=== PATIENT | female | born 1990 | race Caucasian/White ===

== ENCOUNTER 2022-06-22 09:58 | Inpatient (IN) | payer OTHER ==
[2022-06-22 10:09] VITALS: BMI 17.6
[2022-06-22] MEDS ORDERED: SODIUM CHLORIDE 1,000 ML IV STA (10:56)
[2022-06-22] MEDS ORDERED: ONDANSETRON 4 MG/2 ML VIAL IVPUSH ONE ×2 (10:56→13:43)
[2022-06-22] MEDS ORDERED: morphine CARPU-JECT 4 MG/1 ML DISP.SYRIN IVPUSH ONE ×2 (10:56→13:39)
[2022-06-22] MEDS ORDERED: ONDANSETRON 4 MG/2 ML VIAL ONE ×2 (11:27→13:44)
[2022-06-22] MEDS ORDERED: morphine SULFATE 4 MG/ML VIAL ONE (11:27)
[2022-06-22 11:48] LABS: BASO % 0.2 % (0-2.0); EOS % 0.3 % (0-4.5); HEMATOCRIT 40.8 % (32.4-45.2); HEMOGLOBIN 13.6 GM/dL (10.7-15.3); LYMPH % 11.1 % (8-40); MCH 29.5 pg (25.7-33.7); MCHC 33.2 g/dl (32.0-36.0); MEAN CELL VOLUME 88.8 fl (80-96); MEAN PLT VOLUME 7.3 fl (7.5-11.1); MONO % 15.7 % (3.8-10.2); NEUT % 72.7 % (42.8-82.8); PLATELET COUNT 367 10^3/uL (134-434); RBC 4.59 M/mm3 (3.60-5.2); RDW 13.8 % (11.6-15.6); WHITE BLOOD COUNT 11.2 K/mm3 (4.0-10.0)
[2022-06-22 12:09] LABS: CALCIUM 8.9 mg/dL (8.5-10.1)
[2022-06-22 12:10] LABS: ALBUMIN 3.2 g/dl (3.4-5.0); BLOOD UREA NITROGEN 8.3 mg/dL (7-18)
[2022-06-22 12:13] LABS: CREATININE 0.7 mg/dL (0.55-1.3)
[2022-06-22 12:14] LABS: BILIRUBIN,TOTAL 1.2 mg/dL (0.2-1)
[2022-06-22 12:15] LABS: TOT PROT 7.7 g/dl (6.4-8.2)
[2022-06-22 13:07] LABS: EPI CELLS 17 /uL (0-25.1); HYALINE CASTS 2 /uL (0-3.1); PH,URINE 5.5 (5.0-8.0); URINE APPEARANCE CLEAR; URINE BACTERIA 117 /uL (0-1359); URINE BILIRUBIN NEGATIVE (NEGATIVE); URINE COLOR DK YELLOW; URINE GLUCOSE (UA) NEGATIVE (NEGATIVE); URINE KETONE 4+ (NEGATIVE); URINE LEUK ESTERASE NEGATIVE (NEGATIVE); URINE NITRITE NEGATIVE (NEGATIVE); URINE PROTEIN 1+ (NEGATIVE); URINE RBC 20 /uL (0-23.9); URINE WBC 5 /uL (0-25.8)
[2022-06-22] MEDS ORDERED: PIPERACILLIN/TAZOB 4.5 GM 4.5 GM in DEXTROSE 5%-WATER 100 ML IVPB ONE (16:18)
[2022-06-22] MEDS ORDERED: SODIUM CHLORIDE 1,000 ML IV SCH (16:30)
[2022-06-22] MEDS ORDERED: PIPERACILLIN/TAZOB 4.5 GM 4.5 GM/100 ML BAG IVPB ONE (17:51)
[2022-06-23] MEDS ORDERED: ACETAMINOPHEN 1000 MG/100 ML BAG IVPB PRN ×2 (02:46→05:34)
[2022-06-23] MEDS ORDERED: SODIUM CHLORIDE 1,000 ML IV SCH (03:00)
[2022-06-23 04:18] LABS: ERYTHROCYTE SEDIMENTATION RATE 78 mm/hr (0-20)
[2022-06-23] MEDS ORDERED: PIPERACILLIN/TAZOB 3.375 GM 3.375 GM in DEXTROSE 5%-WATER - 50 ML IVPB ONE ×2 (08:15→16:00)
[2022-06-23 11:32] LABS: HEMATOCRIT 35.3 % (32.4-45.2); HEMOGLOBIN 11.9 GM/dL (10.7-15.3); MCH 30.1 pg (25.7-33.7); MCHC 33.7 g/dl (32.0-36.0); MEAN CELL VOLUME 89.1 fl (80-96); MEAN PLT VOLUME 7.1 fl (7.5-11.1); PLATELET COUNT 332 10^3/uL (134-434); RBC 3.97 M/mm3 (3.60-5.2); WHITE BLOOD COUNT 4.6 K/mm3 (4.0-10.0)
[2022-06-23 11:54] LABS: ALBUMIN 2.7 g/dl (3.4-5.0); BLOOD UREA NITROGEN 9.2 mg/dL (7-18)
[2022-06-23 11:57] LABS: BILIRUBIN,TOTAL 1.2 mg/dL (0.2-1); CREATININE 0.5 mg/dL (0.55-1.3); PHOSPHOROUS 2.8 mg/dL (2.5-4.9)
[2022-06-23 11:59] LABS: TOT PROT 6.2 g/dl (6.4-8.2)
[2022-06-23] MEDS ORDERED: PEG 3350/NA SULF BICARB CL/KCL 4000 ML SOLN.RECON PO ONE (16:42)
[2022-06-23] MEDS ORDERED: BISACODYL 5 MG TABLET.DR (FP) PO ONE (22:00)
[2022-06-24 09:44] LABS: BASO % 0.5 % (0-2.0); EOS % 5.1 % (0-4.5); HEMATOCRIT 34.2 % (32.4-45.2); HEMOGLOBIN 11.6 GM/dL (10.7-15.3); LYMPH % 25.6 % (8-40); MCH 29.9 pg (25.7-33.7); MCHC 34.1 g/dl (32.0-36.0); MEAN CELL VOLUME 87.6 fl (80-96); MEAN PLT VOLUME 7.6 fl (7.5-11.1); MONO % 12.5 % (3.8-10.2); NEUT % 56.3 % (42.8-82.8); PLATELET COUNT 299 10^3/uL (134-434); RDW 13.9 % (11.6-15.6); WHITE BLOOD COUNT 4.7 K/mm3 (4.0-10.0)
[2022-06-24 09:51] LABS: INR 1.14 (0.83-1.09); PROTHROMBIN TIME (PATIENT) 13.1 SEC (9.7-13.0)
[2022-06-24 10:30] LABS: ALBUMIN 2.5 g/dl (3.4-5.0); BLOOD UREA NITROGEN 3.6 mg/dL (7-18); MAGNESIUM 1.9 mg/dL (1.8-2.4)
[2022-06-24 10:34] LABS: CREATININE 0.5 mg/dL (0.55-1.3); PHOSPHOROUS 2.4 mg/dL (2.5-4.9); TOT PROT 6.1 g/dl (6.4-8.2)
[2022-06-24] MEDS: SODIUM CHLORIDE 1,000 ML IV SCH ×2 (10:55→13:52)
[2022-06-24 12:24] LABS: BILIRUBIN,TOTAL 0.8 mg/dL (0.2-1)
[2022-06-25 08:11] LABS: CARCINOEMBRYONIC ANTIGEN 0.6 ng/mL (0.0-4.7)
[2022-06-25] MEDS ORDERED: POLYETHYLENE GLYCOL (HEALTHYLAX) 3350 17 GM PACKET PO SCH (11:45)
[2022-06-25 12:06] LABS: BASO % 0.4 % (0-2.0); EOS % 1.9 % (0-4.5); HEMOGLOBIN 13.2 GM/dL (10.7-15.3); LYMPH % 15.2 % (8-40); MCH 29.9 pg (25.7-33.7); MCHC 33.9 g/dl (32.0-36.0); MEAN CELL VOLUME 88.2 fl (80-96); MEAN PLT VOLUME 7.8 fl (7.5-11.1); MONO % 10.7 % (3.8-10.2); NEUT % 71.8 % (42.8-82.8); PLATELET COUNT 360 10^3/uL (134-434); RBC 4.43 M/mm3 (3.60-5.2); RDW 13.8 % (11.6-15.6); WHITE BLOOD COUNT 7.9 K/mm3 (4.0-10.0)
[2022-06-25 12:36] LABS: BLOOD UREA NITROGEN 5.3 mg/dL (7-18); CALCIUM 8.4 mg/dL (8.5-10.1)
[2022-06-25 12:37] LABS: ALBUMIN 2.8 g/dl (3.4-5.0)
[2022-06-25 12:39] LABS: CREATININE 0.5 mg/dL (0.55-1.3)
[2022-06-25 12:40] LABS: BILIRUBIN,TOTAL 0.6 mg/dL (0.2-1); TOT PROT 6.6 g/dl (6.4-8.2)
[2022-06-25] MEDS ORDERED: metroNIDAZOLE 250 MG TABLET PO SCH (15:30)
[2022-06-25] MEDS ORDERED: NEOMYCIN SO4 500 MG TABLET PO SCH ×2 (15:30→16:30)
[2022-06-25] MEDS ORDERED: PEG 3350/NA SULF BICARB CL/KCL 4000 ML SOLN.RECON PO ONE (16:00)
[2022-06-25] MEDS: metroNIDAZOLE 250 MG TABLET PO SCH ×2 (17:02→22:15)
[2022-06-25] MEDS: NEOMYCIN SO4 500 MG TABLET PO SCH ×2 (17:40→22:16)
[2022-06-25] MEDS ORDERED: DEXTROSE 5%-NORMAL SALINE 1,000 ML IV SCH (18:30)
[2022-06-25 22:06] LABS: GLIADIN ANTIBODY IGA 4 units (0-19); GLIADIN ANTIBODY IGG 1 units (0-19); TRANSGLUTAMINASE IGG < 2 U/mL (0-5)
[2022-06-25] MEDS: ONDANSETRON 4 MG/2 ML VIAL IVPUSH PRN (22:31)
[2022-06-26] MEDS: ONDANSETRON 4 MG/2 ML VIAL IVPUSH PRN (04:35)
[2022-06-26] MEDS ORDERED: BUPIVACAINE HCL/PF 0.25% (2.5MG/ML) 10 ML VIAL ONE (10:13)
[2022-06-26] MEDS ORDERED: LIDOCAINE HCL 1%, 10 MG/ML (20ML VIAL) ONE (10:13)
[2022-06-26] MEDS ORDERED: INDOCYANINE GREEN 25 MG/10 ML VIAL IVPUSH ONE (10:26)
[2022-06-26] MEDS ORDERED: DEXAMETHASONE SOD PHOSPHATE 4 MG/1 ML VIAL ONE ×2 (10:44→13:07)
[2022-06-26] MEDS ORDERED: KETOROLAC TROMETHAMINE 30 MG/1 ML VIAL ONE (10:44)
[2022-06-26] MEDS ORDERED: LIDOCAINE HCL 2% 100 MG/5 ML DISP.SYRIN ONE (10:44)
[2022-06-26] MEDS ORDERED: ROCURONIUM BROMIDE 50 MG/5 ML SYRINGE ONE (10:45)
[2022-06-26] MEDS ORDERED: SUCCINYLCHOLINE CHLORIDE 200 MG/10 ML SYRINGE ONE (10:45)
[2022-06-26] MEDS ORDERED: PROPOFOL 40 ML ONE (10:45)
[2022-06-26] MEDS ORDERED: MIDAZOLAM HCL 2 MG/2 ML SINGLE DOSE VIAL ONE (10:46)
[2022-06-26] MEDS ORDERED: cefOXitin SODIUM 2 GM VIAL (RESTRICTED TO ID) IVPB ONE ×2 (11:52→12:00)
[2022-06-26] MEDS ORDERED: BUPIVACAINE HCL/PF 0.25% (2.5MG/ML) 10 ML VIAL IJ ONE (12:11)
[2022-06-26] MEDS ORDERED: PROPOFOL 20 ML ONE (13:07)
[2022-06-26] MEDS ORDERED: LIDOCAINE HCL/PF 2% SDV 5ML VIAL ONE (13:07)
[2022-06-26] MEDS ORDERED: SODIUM CHLORIDE 0.9% P/F 10 ML VIAL IJ ONE (13:07)
[2022-06-26] MEDS ORDERED: GLYCOPYRROLATE 0.2 MG/1 ML VIAL ONE (13:07)
[2022-06-26] MEDS ORDERED: NEOSTIGMINE METHYLSULFATE 0.5 MG/ML - 10 ML MDV ONE (13:07)
[2022-06-26] MEDS ORDERED: ACETAMINOPHEN INJECTION 100 ML IVPB ONE (13:08)
[2022-06-26] MEDS ORDERED: DOCUSATE SODIUM 100 MG CAPSULE (FP) PO PRN (14:51)
[2022-06-26] MEDS ORDERED: KETOROLAC TROMETHAMINE 15 MG/ML VIAL IM PRN (14:51)
[2022-06-26] MEDS: DEXTROSE 5%-NORMAL SALINE 1,000 ML IV SCH ×3 (16:04→17:51)
[2022-06-26] MEDS: metroNIDAZOLE 250 MG TABLET PO SCH (16:06)
[2022-06-26] MEDS ORDERED: LACTATED RINGERS SOLUTION 1,000 ML IV SCH (17:15)
[2022-06-26] MEDS ORDERED: ACETAMINOPHEN 325 MG TABLET (FP) PO PRN (21:30)
[2022-06-27] MEDS: oxyCODONE HCL 5 MG TABLET PO PRN (01:14)
[2022-06-27] MEDS ORDERED: ACETAMINOPHEN 1000 MG/100 ML BAG IVPB ONE ×2 (02:24→06:00)
[2022-06-27] MEDS: DEXTROSE 5%-NORMAL SALINE 1,000 ML IV SCH ×2 (02:30→17:53)
[2022-06-27] MEDS ORDERED: HEPARIN NA (PORCINE) 5,000 UNITS/ML 1ML VIAL SQ SCH (10:00)
[2022-06-27] MEDS ORDERED: ENOXAPARIN NA (PORCINE) 30 MG/0.3 ML DISP.SYRIN SQ SCH ×2 (10:15→10:30)
[2022-06-27] MEDS: ENOXAPARIN NA (PORCINE) 40 MG/0.4 ML DISP.SYRIN SQ SCH (10:48)
[2022-06-27] MEDS: ACETAMINOPHEN 1000 MG/100 ML BAG IVPB PRN ×2 (11:13→18:38)
[2022-06-27 15:52] LABS: BASO % 0.1 % (0-2.0); EOS % 0.7 % (0-4.5); HEMATOCRIT 32.2 % (32.4-45.2); HEMOGLOBIN 11.2 GM/dL (10.7-15.3); LYMPH % 7.9 % (8-40); MCH 30.5 pg (25.7-33.7); MCHC 34.8 g/dl (32.0-36.0); MEAN CELL VOLUME 87.6 fl (80-96); MEAN PLT VOLUME 6.5 fl (7.5-11.1); MONO % 9.5 % (3.8-10.2); NEUT % 81.8 % (42.8-82.8); PLATELET COUNT 324 10^3/uL (134-434); RBC 3.67 M/mm3 (3.60-5.2); WHITE BLOOD COUNT 12.1 K/mm3 (4.0-10.0)
[2022-06-27 16:15] LABS: CALCIUM 7.8 mg/dL (8.5-10.1)
[2022-06-27 16:16] LABS: ALBUMIN 2.3 g/dl (3.4-5.0); BLOOD UREA NITROGEN 3.6 mg/dL (7-18); MAGNESIUM 1.6 mg/dL (1.8-2.4)
[2022-06-27 16:19] LABS: CREATININE 0.5 mg/dL (0.55-1.3)
[2022-06-27 16:21] LABS: BILIRUBIN,TOTAL 0.7 mg/dL (0.2-1); TOT PROT 5.6 g/dl (6.4-8.2)
[2022-06-27] MEDS: ONDANSETRON 4 MG/2 ML VIAL IVPUSH PRN (22:20)
[2022-06-28] MEDS: ACETAMINOPHEN 1000 MG/100 ML BAG IVPB PRN ×2 (00:07→08:33)
[2022-06-28] MEDS: DEXTROSE 5%-NORMAL SALINE 1,000 ML IV SCH ×2 (01:54→14:12)
[2022-06-28] MEDS: ENOXAPARIN NA (PORCINE) 40 MG/0.4 ML DISP.SYRIN SQ SCH (09:36)
[2022-06-28 09:57] LABS: BASO % 0.2 % (0-2.0); EOS % 1.3 % (0-4.5); HEMATOCRIT 31.2 % (32.4-45.2); HEMOGLOBIN 10.6 GM/dL (10.7-15.3); LYMPH % 3.6 % (8-40); MCH 29.7 pg (25.7-33.7); MCHC 34.1 g/dl (32.0-36.0); MEAN CELL VOLUME 87.1 fl (80-96); MEAN PLT VOLUME 7.1 fl (7.5-11.1); MONO % 6.6 % (3.8-10.2); NEUT % 88.3 % (42.8-82.8); PLATELET COUNT 344 10^3/uL (134-434); RBC 3.58 M/mm3 (3.60-5.2); RDW 13.5 % (11.6-15.6); WHITE BLOOD COUNT 12.2 K/mm3 (4.0-10.0)
[2022-06-28 10:16] LABS: ALBUMIN 2.2 g/dl (3.4-5.0); BLOOD UREA NITROGEN 5.6 mg/dL (7-18); CALCIUM 7.4 mg/dL (8.5-10.1); MAGNESIUM 1.8 mg/dL (1.8-2.4)
[2022-06-28 10:19] LABS: CREATININE 0.4 mg/dL (0.55-1.3)
[2022-06-28 10:21] LABS: BILIRUBIN,TOTAL 0.6 mg/dL (0.2-1); TOT PROT 5.4 g/dl (6.4-8.2)
[2022-06-28] MEDS: ONDANSETRON 4 MG/2 ML VIAL IVPUSH PRN (13:37)
[2022-06-28] MEDS: ACETAMINOPHEN 325 MG TABLET (FP) PO PRN ×3 (14:17→23:39)
[2022-06-29] MEDS: DEXTROSE 5%-NORMAL SALINE 1,000 ML IV SCH ×2 (06:31→15:19)
[2022-06-29] MEDS: oxyCODONE HCL 5 MG TABLET PO PRN ×3 (07:27→20:41)
[2022-06-29 08:50] LABS: BASO % 0.2 % (0-2.0); EOS % 2.5 % (0-4.5); HEMATOCRIT 30.4 % (32.4-45.2); HEMOGLOBIN 10.2 GM/dL (10.7-15.3); LYMPH % 5.8 % (8-40); MCH 29.7 pg (25.7-33.7); MCHC 33.6 g/dl (32.0-36.0); MEAN CELL VOLUME 88.5 fl (80-96); MEAN PLT VOLUME 6.9 fl (7.5-11.1); MONO % 7.3 % (3.8-10.2); NEUT % 84.2 % (42.8-82.8); PLATELET COUNT 354 10^3/uL (134-434); RBC 3.44 M/mm3 (3.60-5.2); RDW 13.7 % (11.6-15.6); WHITE BLOOD COUNT 10.8 K/mm3 (4.0-10.0)
[2022-06-29 09:07] LABS: CALCIUM 7.6 mg/dL (8.5-10.1)
[2022-06-29 09:08] LABS: BLOOD UREA NITROGEN 6.1 mg/dL (7-18)
[2022-06-29 09:09] LABS: MAGNESIUM 1.6 mg/dL (1.8-2.4)
[2022-06-29 09:10] LABS: CREATININE 0.4 mg/dL (0.55-1.3)
[2022-06-29 09:12] LABS: BILIRUBIN,TOTAL 0.6 mg/dL (0.2-1); TOT PROT 5.3 g/dl (6.4-8.2)
[2022-06-29] MEDS: ENOXAPARIN NA (PORCINE) 40 MG/0.4 ML DISP.SYRIN SQ SCH (09:30)
[2022-06-29] MEDS ORDERED: POTASSIUM CHLORIDE TABS 20 MEQ TABLET.ER (FP) PO ONE (09:57)
[2022-06-29] MEDS: MESALAMINE 800 MG TABLET.DR PO SCH ×2 (17:07→22:04)
[2022-06-29] MEDS: ACETAMINOPHEN 325 MG TABLET (FP) PO PRN ×2 (20:42→22:05)
[2022-06-29 22:45] VITALS: RESP 18
[2022-06-30] MEDS: MESALAMINE 800 MG TABLET.DR PO SCH ×2 (06:43→13:28)
[2022-06-30 07:20] VITALS: TEMP 98.3
[2022-06-30] MEDS: ENOXAPARIN NA (PORCINE) 40 MG/0.4 ML DISP.SYRIN SQ SCH (09:06)
[2022-06-30] MEDS: oxyCODONE HCL 5 MG TABLET PO PRN (09:06)
[2022-06-30 09:23] LABS: BASO % 0.4 % (0-2.0); EOS % 4.8 % (0-4.5); HEMATOCRIT 31.3 % (32.4-45.2); HEMOGLOBIN 10.9 GM/dL (10.7-15.3); LYMPH % 9.6 % (8-40); MCH 30.2 pg (25.7-33.7); MCHC 34.8 g/dl (32.0-36.0); MEAN CELL VOLUME 86.7 fl (80-96); MEAN PLT VOLUME 6.9 fl (7.5-11.1); MONO % 10.6 % (3.8-10.2); NEUT % 74.6 % (42.8-82.8); PLATELET COUNT 358 10^3/uL (134-434); RBC 3.61 M/mm3 (3.60-5.2); RDW 13.6 % (11.6-15.6); WHITE BLOOD COUNT 7.3 K/mm3 (4.0-10.0)
[2022-06-30 10:14] LABS: ALBUMIN 2.2 g/dl (3.4-5.0); BLOOD UREA NITROGEN 5.1 mg/dL (7-18); CALCIUM 7.9 mg/dL (8.5-10.1); MAGNESIUM 1.8 mg/dL (1.8-2.4)
[2022-06-30 10:17] LABS: CREATININE 0.4 mg/dL (0.55-1.3)
[2022-06-30 10:18] LABS: BILIRUBIN,TOTAL 0.7 mg/dL (0.2-1); TOT PROT 5.9 g/dl (6.4-8.2)
[2022-06-30 10:29] VITALS: BP 103/65; PULSE 88
[2022-06-30] MEDS: ACETAMINOPHEN 325 MG TABLET (FP) PO PRN (13:28)
== END 2022-06-30 17:41 | disposition home or self-care (01) | DRG 221 ==
LOC: EDBD 09:58 → JER 09:58 → JERBED 19:42 → J6S 06-23 07:40
PROVIDERS: ADMIT Hospitalist; ATTEND Nurse Practitioner Family
PROC: 0DBC8ZX Excision of Ileocecal Valve, Via Natural or Artificial Opening Endoscopic, Diagnostic (ICD-10-PCS; 2022-06-24)
PROC: 0DBC8ZX Excision of Ileocecal Valve, Via Natural or Artificial Opening Endoscopic, Diagnostic (ICD-10-PCS; principal; 2022-06-24 11:30)
PROC: 0DTH4ZZ Resection of Cecum, Percutaneous Endoscopic Approach (ICD-10-PCS; 2022-06-26)
DX: K50.90 Crohn's disease, unspecified, without complications (principal); K56.600 Partial intestinal obstruction, unspecified as to cause; R10.31 Right lower quadrant pain; R93.5 Abnormal findings on diagnostic imaging of other abdominal regions, including retroperitoneum; K63.89 Other specified diseases of intestine; K64.8 Other hemorrhoids; Z59.89 Other problems related to housing and economic circumstances
CPT/HCPCS: 36415; 71046-TC-FY; 74019-TC-FY; 74177-TC; 80048; 80053; 81003; 82272; 82378; 82542; 82607; 82728; 82746; 82784; 83497; 83516; 83540; 83550; 83690; 83735; 83993; 84100; 84703; 85025; 85027; 85610; 85651; 86140; 86255; 86301; 86480; 86671; 86704; 86708; 86803; 86850; 86900; 86901; 87040; 87045; 87046; 87086; 87186; 87209; 87340; 87517; 88305-TC; 88307-TC; 93005; 93010; 94010; 94760; 99285-25; C9803-CS; Q9967; U0003; U0005

== ENCOUNTER 2023-01-07 04:12 | Day surgery (SDC) | payer OTHER ==
[2023-01-07 10:18] VITALS: BMI 15.9
[2023-01-07 13:05] VITALS: TEMP 97.4
[2023-01-07 13:35] VITALS: BP 103/65; PULSE 82; RESP 14
== END 2023-01-07 14:50 | disposition home or self-care (01) ==
LOC: JASU-ENDO 04:12
PROVIDERS: ATTEND Internal Medicine Gastroenterology
PROC: 0DBE8ZX Excision of Large Intestine, Via Natural or Artificial Opening Endoscopic, Diagnostic (ICD-10-PCS; 2023-01-07)
PROC: 0DBP8ZX Excision of Rectum, Via Natural or Artificial Opening Endoscopic, Diagnostic (ICD-10-PCS; 2023-01-07)
PROC: 0DBB8ZX Excision of Ileum, Via Natural or Artificial Opening Endoscopic, Diagnostic (ICD-10-PCS; 2023-01-07)
PROC: 0DBM8ZX Excision of Descending Colon, Via Natural or Artificial Opening Endoscopic, Diagnostic (ICD-10-PCS; principal; 2023-01-07 11:45)
DX: Z12.11 Encounter for screening for malignant neoplasm of colon (principal); K52.9 Noninfective gastroenteritis and colitis, unspecified; K64.8 Other hemorrhoids; Z98.0 Intestinal bypass and anastomosis status
CPT/HCPCS: 81025; 88305-TC

== ENCOUNTER 2023-02-15 07:50 | Day surgery (SDC) | payer OTHER ==
[2023-02-15] MEDS ORDERED: diphenhydrAMINE HCL 25 MG CAPSULE (FP) PO ONE ×2 (09:00→10:45)
[2023-02-15] MEDS ORDERED: HYDROCORTISONE SOD SUCCINATE 100 MG/2 ML VIAL IVPB ONE (09:00)
[2023-02-15] MEDS ORDERED: ACETAMINOPHEN 500 MG TABLET (FP) PO ONE (09:00)
[2023-02-15 09:08] LABS: CHLORIDE 110 mmol/L (98-107); POTASSIUM 4.5 mmol/L (3.5-5.1); SODIUM 139 mmol/L (136-145)
[2023-02-15 09:10] LABS: ALBUMIN 3.5 g/dl (3.4-5.0); ANION GAP 4 MMOL/L (8-16); BLOOD UREA NITROGEN 13.5 mg/dL (7-18); CALCIUM 8.5 mg/dL (8.5-10.1); CO2 26 mmol/L (21-32); GLUCOSE,RANDOM 85 mg/dL (74-106)
[2023-02-15 09:14] LABS: CREATININE 0.7 mg/dL (0.55-1.3); SGPT/ALT 46 U/L (13-61)
[2023-02-15 09:15] LABS: BILIRUBIN,TOTAL 0.8 mg/dL (0.2-1); TOT PROT 7.6 g/dl (6.4-8.2)
[2023-02-15 09:16] LABS: ALK PHOS 72 U/L (45-117)
[2023-02-15 09:26] LABS: SGOT/AST 34 U/L (15-37)
[2023-02-15] MEDS ORDERED: SODIUM CHLORIDE IVPB ONE (09:30)
[2023-02-15] MEDS ORDERED: INFLIXIMAB ABDA IVPB ONE (09:30)
[2023-02-15 10:26] LABS: BASO % 0.4 % (0-2.0); EOS % 3.1 % (0-4.5); HEMATOCRIT 32.9 % (32.4-45.2); HEMOGLOBIN 10.9 GM/dL (10.7-15.3); LYMPH % 20.6 % (8-40); MCH 28.4 pg (25.7-33.7); MCHC 33.3 g/dl (32.0-36.0); MEAN CELL VOLUME 85.2 fl (80-96); MEAN PLT VOLUME 7.6 fl (7.5-11.1); MONO % 9.7 % (3.8-10.2); NEUT % 66.2 % (42.8-82.8); PLATELET COUNT 290 10^3/uL (134-434); RBC 3.86 M/mm3 (3.60-5.2); RDW 16.3 % (11.6-15.6)
[2023-02-15] MEDS ORDERED: SODIUM CHLORIDE 250 ML IV ONE (10:30)
[2023-02-15] MEDS ORDERED: ACETAMINOPHEN 500 MG TABLET (FP) ONE (10:46)
[2023-02-15] MEDS ORDERED: EPINEPHrine/PF 1 MG/1 ML (1:1,000) AMPULE ONE (11:20)
[2023-02-15] MEDS ORDERED: methylPREDNISolone NA SUCC 40 MG/1 ML VIAL ONE (11:21)
[2023-02-15] MEDS ORDERED: HYDROCORTISONE SOD SUCCINATE 100 MG/2 ML VIAL ONE (11:23)
[2023-02-15 14:45] VITALS: TEMP 98.2
[2023-02-15 15:10] VITALS: BP 102/71; PULSE 73; RESP 14
== END 2023-02-15 15:12 | disposition home or self-care (01) ==
LOC: JCHEMO 07:50 → FINFUSION 07:50 → FM/S 08:54 → FINFUSION 08:54 → JCHEMO 15:12
PROVIDERS: ATTEND Internal Medicine Gastroenterology
DX: K50.00 Crohn's disease of small intestine without complications (principal)
CPT/HCPCS: 36415; 80048; 80053; 85025; 86140; 96367; 96413; 96415; Q5104

== ENCOUNTER 2023-03-03 07:58 | Day surgery (SDC) | payer OTHER ==
[2023-03-03] MEDS ORDERED: HYDROCORTISONE SOD SUCCINATE 100 MG/2 ML VIAL IVPB ONE (09:00)
[2023-03-03] MEDS ORDERED: SODIUM CHLORIDE IVPB ONE ×3 (09:00→10:30)
[2023-03-03] MEDS ORDERED: HYDROCORTISONE SOD SUCCINATE IVPB ONE ×2 (09:00→10:00)
[2023-03-03 09:01] LABS: BASO % 0.2 % (0-2.0); EOS % 2.2 % (0-4.5); HEMATOCRIT 34.4 % (32.4-45.2); HEMOGLOBIN 11.5 GM/dL (10.7-15.3); MCH 27.9 pg (25.7-33.7); MCHC 33.5 g/dl (32.0-36.0); MEAN CELL VOLUME 83.4 fl (80-96); MONO % 11.9 % (3.8-10.2); NEUT % 60.7 % (42.8-82.8); PLATELET COUNT 268 10^3/uL (134-434); RBC 4.13 M/mm3 (3.60-5.2); WHITE BLOOD COUNT 5.3 K/mm3 (4.0-10.0)
[2023-03-03 09:18] LABS: CHLORIDE 108 mmol/L (98-107); SODIUM 139 mmol/L (136-145)
[2023-03-03 09:20] LABS: CALCIUM 8.9 mg/dL (8.5-10.1)
[2023-03-03 09:21] LABS: ALBUMIN 3.6 g/dl (3.4-5.0); ANION GAP 3 MMOL/L (8-16); BLOOD UREA NITROGEN 15.3 mg/dL (7-18); CO2 28 mmol/L (21-32); GLUCOSE,RANDOM 78 mg/dL (74-106)
[2023-03-03 09:24] LABS: CREATININE 0.7 mg/dL (0.55-1.3); SGOT/AST 24 U/L (15-37); SGPT/ALT 30 U/L (13-61)
[2023-03-03 09:25] LABS: TOT PROT 7.5 g/dl (6.4-8.2)
[2023-03-03 09:27] LABS: ALK PHOS 65 U/L (45-117)
[2023-03-03] MEDS ORDERED: diphenhydrAMINE HCL 25 MG CAPSULE (FP) PO ONE (10:00)
[2023-03-03] MEDS ORDERED: ACETAMINOPHEN 500 MG TABLET (FP) PO ONE (10:00)
[2023-03-03] MEDS ORDERED: SODIUM CHLORIDE 250 ML IV ONE (10:00)
[2023-03-03] MEDS ORDERED: INFLIXIMAB ABDA IVPB ONE (10:30)
[2023-03-03 11:39] VITALS: RESP 16; TEMP 98.1
[2023-03-03 12:16] VITALS: BP 104/60; PULSE 75
== END 2023-03-03 13:30 | disposition home or self-care (01) ==
LOC: JCHEMO 07:58
PROVIDERS: ATTEND Internal Medicine Gastroenterology
DX: K50.00 Crohn's disease of small intestine without complications (principal)
CPT/HCPCS: 36415; 80053; 85025; 86140; 96413; 96415; Q5104

== ENCOUNTER 2023-03-31 07:29 | Day surgery (SDC) | payer OTHER ==
[2023-03-31 09:01] LABS: BASO % 0.6 % (0-2.0); EOS % 3.9 % (0-4.5); HEMATOCRIT 33.2 % (32.4-45.2); HEMOGLOBIN 11.3 GM/dL (10.7-15.3); LYMPH % 28.6 % (8-40); MCH 29.5 pg (25.7-33.7); MCHC 34.1 g/dl (32.0-36.0); MEAN CELL VOLUME 86.5 fl (80-96); MEAN PLT VOLUME 7.5 fl (7.5-11.1); MONO % 11.7 % (3.8-10.2); NEUT % 55.2 % (42.8-82.8); PLATELET COUNT 293 10^3/uL (134-434); RBC 3.83 M/mm3 (3.60-5.2); RDW 17.7 % (11.6-15.6); WHITE BLOOD COUNT 5.3 K/mm3 (4.0-10.0)
[2023-03-31 09:24] LABS: CHLORIDE 108 mmol/L (98-107); SODIUM 141 mmol/L (136-145)
[2023-03-31 09:26] LABS: ANION GAP 6 MMOL/L (8-16); BLOOD UREA NITROGEN 13.3 mg/dL (7-18); CALCIUM 8.7 mg/dL (8.5-10.1); CO2 27 mmol/L (21-32)
[2023-03-31 09:27] LABS: ALBUMIN 3.5 g/dl (3.4-5.0); GLUCOSE,RANDOM 73 mg/dL (74-106)
[2023-03-31 09:29] LABS: CREATININE 0.8 mg/dL (0.55-1.3); SGPT/ALT 30 U/L (13-61)
[2023-03-31 09:30] LABS: SGOT/AST 22 U/L (15-37)
[2023-03-31 09:31] LABS: BILIRUBIN,TOTAL 0.9 mg/dL (0.2-1); TOT PROT 7.6 g/dl (6.4-8.2)
[2023-03-31 09:32] LABS: ALK PHOS 64 U/L (45-117)
[2023-03-31] MEDS ORDERED: ACETAMINOPHEN 500 MG TABLET (FP) PO ONE (10:00)
[2023-03-31] MEDS ORDERED: HYDROCORTISONE SOD SUCCINATE IVPB ONE (10:00)
[2023-03-31] MEDS ORDERED: SODIUM CHLORIDE IVPB ONE ×2 (10:00→10:30)
[2023-03-31] MEDS ORDERED: diphenhydrAMINE HCL 25 MG CAPSULE (FP) PO ONE (10:00)
[2023-03-31] MEDS ORDERED: INFLIXIMAB ABDA IVPB ONE (10:30)
[2023-03-31 16:17] VITALS: TEMP 98.2
[2023-03-31 17:49] VITALS: BP 98/55; PULSE 92; RESP 19
== END 2023-03-31 13:15 | disposition home or self-care (01) ==
LOC: JONCNONCHE 07:29
PROVIDERS: ATTEND Internal Medicine Gastroenterology
DX: K50.00 Crohn's disease of small intestine without complications (principal)
CPT/HCPCS: 36415; 80053; 84703; 85025; 86140; 96367; 96413; 96415; Q5104

== ENCOUNTER 2023-05-31 07:36 | Day surgery (SDC) | payer OTHER ==
[2023-05-31] MEDS ORDERED: SODIUM CHLORIDE IVPB ONE ×2 (08:30→09:00)
[2023-05-31] MEDS ORDERED: ACETAMINOPHEN 500 MG TABLET (FP) PO ONE (08:30)
[2023-05-31] MEDS ORDERED: diphenhydrAMINE HCL 25 MG CAPSULE (FP) PO ONE (08:30)
[2023-05-31] MEDS ORDERED: HYDROCORTISONE SOD SUCCINATE IVPB ONE (08:30)
[2023-05-31 08:32] LABS: BASO % 0.7 % (0-2.0); EOS % 4.1 % (0-4.5); HEMATOCRIT 37.7 % (32.4-45.2); HEMOGLOBIN 12.6 GM/dL (10.7-15.3); LYMPH % 23.4 % (8-40); MCH 29.9 pg (25.7-33.7); MCHC 33.3 g/dl (32.0-36.0); MEAN CELL VOLUME 89.6 fl (80-96); MEAN PLT VOLUME 8.2 fl (7.5-11.1); MONO % 8.8 % (3.8-10.2); PLATELET COUNT 260 10^3/uL (134-434); RBC 4.21 M/mm3 (3.60-5.2); RDW 15.7 % (11.6-15.6); WHITE BLOOD COUNT 6.1 K/mm3 (4.0-10.0)
[2023-05-31] MEDS ORDERED: INFLIXIMAB ABDA IVPB ONE (09:00)
[2023-05-31 09:14] LABS: CHLORIDE 108 mmol/L (98-107); POTASSIUM 3.6 mmol/L (3.5-5.1); SODIUM 143 mmol/L (136-145)
[2023-05-31 09:15] LABS: ALBUMIN 3.5 g/dl (3.4-5.0); ANION GAP 6 MMOL/L (8-16); BLOOD UREA NITROGEN 10.2 mg/dL (7-18); CO2 29 mmol/L (21-32); GLUCOSE,RANDOM 90 mg/dL (74-106)
[2023-05-31 09:19] LABS: CREATININE 0.8 mg/dL (0.55-1.3); SGOT/AST 21 U/L (15-37); SGPT/ALT 28 U/L (13-61)
[2023-05-31 09:21] LABS: BILIRUBIN,TOTAL 1.4 mg/dL (0.2-1); TOT PROT 7.4 g/dl (6.4-8.2)
[2023-05-31 09:22] LABS: ALK PHOS 70 U/L (45-117)
[2023-05-31] MEDS ORDERED: SODIUM CHLORIDE 250 ML IV ONE (09:30)
[2023-05-31 15:57] VITALS: BP 92/57; PULSE 80; RESP 20; TEMP 98.1
== END 2023-05-31 13:25 | disposition home or self-care (01) ==
LOC: JCHEMO 07:36 → J7W 07:43 → JCHEMO 13:25
PROVIDERS: ATTEND Internal Medicine Gastroenterology
PROC: 3E03305 Introduction of Other Antineoplastic into Peripheral Vein, Percutaneous Approach (ICD-10-PCS; principal; 2023-05-31)
PROC: 3E033GC Introduction of Other Therapeutic Substance into Peripheral Vein, Percutaneous Approach (ICD-10-PCS; 2023-05-31)
PROC: 3E0337Z Introduction of Electrolytic and Water Balance Substance into Peripheral Vein, Percutaneous Approach (ICD-10-PCS; 2023-05-31)
DX: K50.00 Crohn's disease of small intestine without complications (principal)
CPT/HCPCS: 36415; 80053; 84703; 85025; 86140; 96361; 96367; 96413; 96415; Q5104

== ENCOUNTER 2023-08-16 08:17 | Day surgery (SDC) | payer OTHER ==
[2023-08-16] MEDS ORDERED: SODIUM CHLORIDE 250 ML IV SCH (08:30)
[2023-08-16] MEDS ORDERED: ACETAMINOPHEN 500 MG TABLET (FP) PO ONE (10:00)
[2023-08-16] MEDS ORDERED: SODIUM CHLORIDE IVPB ONE ×2 (10:00→10:30)
[2023-08-16] MEDS ORDERED: HYDROCORTISONE SOD SUCCINATE IVPB ONE (10:00)
[2023-08-16] MEDS ORDERED: diphenhydrAMINE HCL 25 MG CAPSULE (FP) PO ONE (10:00)
[2023-08-16] MEDS ORDERED: INFLIXIMAB ABDA IVPB ONE (10:30)
[2023-08-16 13:56] VITALS: RESP 18
[2023-08-16 14:44] VITALS: BP 98/56; PULSE 95; TEMP 97.8
== END 2023-08-16 14:40 | disposition home or self-care (01) ==
LOC: JCHEMO 08:17 → J7W 08:18 → JCHEMO 14:40
PROVIDERS: ATTEND Internal Medicine Gastroenterology
DX: K50.00 Crohn's disease of small intestine without complications (principal)
CPT/HCPCS: 96367; 96413; 96415; Q5104

== ENCOUNTER 2023-10-18 10:31 | Day surgery (SDC) | payer OTHER ==
[~2023-10-18 10:31] MED LIST: ACETAMINOPHEN 500 MG TABLET (FP) PO ONE; HYDROCORTISONE SOD SUCCINATE IVPB ONE; INFLIXIMAB ABDA IVPB ONE; SODIUM CHLORIDE 250 ML IV SCH; SODIUM CHLORIDE IVPB ONE; diphenhydrAMINE HCL 25 MG CAPSULE (FP) PO ONE
[2023-10-18 11:46] LABS: BASO % 0.1 % (0-2.0); EOS % 1.4 % (0-4.5); HEMATOCRIT 34.3 % (32.4-45.2); HEMOGLOBIN 11.8 GM/dL (10.7-15.3); LYMPH % 10.8 % (8-40); MCH 34.6 pg (25.7-33.7); MCHC 34.4 g/dl (32.0-36.0); MEAN CELL VOLUME 100.7 fl (80-96); MEAN PLT VOLUME 7.7 fl (7.5-11.1); MONO % 7.5 % (3.8-10.2); NEUT % 80.2 % (42.8-82.8); PLATELET COUNT 202 10^3/uL (134-434); RBC 3.41 M/mm3 (3.60-5.2); RDW 14.4 % (11.6-15.6); WHITE BLOOD COUNT 9.7 K/mm3 (4.0-10.0)
[2023-10-18 12:08] LABS: POTASSIUM 3.9 mmol/L (3.5-5.1)
[2023-10-18 12:11] LABS: ALBUMIN 2.6 g/dl (3.4-5.0)
[2023-10-18 12:14] LABS: CREATININE 0.6 mg/dL (0.55-1.3)
[2023-10-18 12:16] LABS: BILIRUBIN,TOTAL 0.3 mg/dL (0.2-1); TOT PROT 6.4 g/dl (6.4-8.2)
[2023-10-18 17:19] VITALS: RESP 18; TEMP 97.9
[2023-10-18 17:22] VITALS: BP 91/50; PULSE 73
== END 2023-10-18 16:15 | disposition home or self-care (01) ==
LOC: JCHEMO 10:31 → J7W 10:33 → JCHEMO 16:15
PROVIDERS: ATTEND Internal Medicine Gastroenterology
DX: K50.00 Crohn's disease of small intestine without complications (principal)
CPT/HCPCS: 36415; 80053; 85025; 86140; 96367; 96413; 96415; Q5104

== ENCOUNTER 2024-02-29 18:05 | Inpatient (IN) | payer OTHER ==
[2024-02-29 18:45] VITALS: BMI 23.2
[2024-02-29] MEDS: ELECTROLYTE-148 SOLN 1,000 ML IV SCH (19:00)
[2024-02-29 19:30] LABS: BASO % 0.4 % (0-2.0); EOS % 0.7 % (0-4.5); HEMATOCRIT 37.9 % (32.4-45.2); HEMOGLOBIN 12.6 GM/dL (10.7-15.3); LYMPH % 11.4 % (8-40); MCH 32.9 pg (25.7-33.7); MCHC 33.2 g/dl (32.0-36.0); MEAN CELL VOLUME 99.1 fl (80-96); MEAN PLT VOLUME 8.9 fl (7.5-11.1); MONO % 7.6 % (3.8-10.2); NEUT % 79.9 % (42.8-82.8); PLATELET COUNT 164 10^3/uL (134-434); RBC 3.82 M/mm3 (3.60-5.2); WHITE BLOOD COUNT 11.3 K/mm3 (4.0-10.0)
[2024-02-29 19:36] LABS: INR 0.96 (0.83-1.09); PROTHROMBIN TIME (PATIENT) 11.1 SEC (9.7-13.0)
[2024-02-29] MEDS ORDERED: FENTANYL/BUPIVACAINE/NS/PF - PCEA - 50 ML DISP.SYRIN EP ONE (19:37)
[2024-02-29 19:39] LABS: ACTIVATED PTT 27.6 SECONDS (25.2-36.5)
[2024-02-29 19:51] LABS: CALCIUM 7.9 mg/dL (8.5-10.1)
[2024-02-29 19:52] LABS: BLOOD UREA NITROGEN 7.3 mg/dL (7-18)
[2024-02-29 19:55] LABS: CREATININE 0.6 mg/dL (0.55-1.3)
[2024-02-29] MEDS: FENTANYL/BUPIVACAINE/NS/PF - PCEA - 50 ML DISP.SYRIN EP SCH (19:55)
[2024-02-29] MEDS ORDERED: NALOXONE HCL 0.4 MG/ML VIAL IVPUSH PRN (22:09)
[2024-03-01] MEDS ORDERED: OXYTOCIN 20 UNITS in 0.9% NS 20 UNIT/1,000 ML INFUS.BAG IV ONE (00:24)
[2024-03-01] MEDS: OXYTOCIN 20 UNITS in 0.9% NS 20 UNIT/1,000 ML INFUS.BAG IV SCH (01:06)
[2024-03-01] MEDS ORDERED: BISACODYL 10 MG SUPP.RECT RC PRN (01:43)
[2024-03-01] MEDS ORDERED: METHYLERGONOVINE MALEATE 0.2 MG/1 ML AMP IM PRN (01:43)
[2024-03-01] MEDS ORDERED: BENZOCAINE 28 GM HEMORRHOIDAL OINTMENT TP PRN (01:43)
[2024-03-01 02:06] LABS: CORD HCO3 22.9 mmHg (20-29); CORD PCO2 64.4 mmHg (30-78); CORD pH 7.168 (7.14-7.44)
[2024-03-01 02:08] LABS: CORD BASE EXCESS -7.5 mmol/L (0-2); CORD HCO3 20.1 mmHg (20-29); CORD PCO2 47.7 mmHg (30-78); CORD pH 7.243 (7.14-7.44)
[2024-03-01] MEDS: ACETAMINOPHEN 325 MG TABLET (FP) PO PRN (02:12)
[2024-03-01] MEDS: FENTANYL/BUPIVACAINE/NS/PF - PCEA - 50 ML DISP.SYRIN EP SCH (02:50)
[2024-03-01] MEDS: WITCH HAZEL 50% (TUCKS) 40 PAD/JAR PAD TP PRN (04:06)
[2024-03-01] MEDS: BENZOCAINE 20% 57 GM BOTTLE TP PRN (04:06)
[2024-03-01] MEDS: IBUPROFEN 600 MG TABLET (FP) PO PRN (04:07)
[2024-03-01] MEDS: PRENATAL VITAMINS W/ FOLIC ACID TABLET (FP) PO SCH (09:12)
[2024-03-02 08:40] LABS: BASO % 0.7 % (0-2.0); EOS % 1.9 % (0-4.5); HEMATOCRIT 34.1 % (32.4-45.2); HEMOGLOBIN 11.5 GM/dL (10.7-15.3); LYMPH % 14.3 % (8-40); MCH 33.7 pg (25.7-33.7); MCHC 33.6 g/dl (32.0-36.0); MEAN CELL VOLUME 100.3 fl (80-96); MEAN PLT VOLUME 8.9 fl (7.5-11.1); MONO % 6.2 % (3.8-10.2); NEUT % 76.9 % (42.8-82.8); PLATELET COUNT 156 10^3/uL (134-434); RDW 14.5 % (11.6-15.6); WHITE BLOOD COUNT 9.4 K/mm3 (4.0-10.0)
[2024-03-02] MEDS ORDERED: SENNOSIDES/DOCUSATE COMBO (SENNA PLUS) TABLET (UD) PO PRN (22:00)
[2024-03-02 22:11] VITALS: RESP 18
[2024-03-03 09:25] VITALS: TEMP 97.9
[2024-03-03 09:27] VITALS: BP 121/71; PULSE 94
== END 2024-03-03 12:00 | disposition home or self-care (01) | DRG 560 ==
LOC: JDEL 18:05 → JLDR 18:25 → J3W 03-01 03:39
PROVIDERS: ADMIT Obstetrics & Gynecology Obstetrics; ATTEND Obstetrics & Gynecology Obstetrics
PROC: 10E0XZZ Delivery of Products of Conception, External Approach (ICD-10-PCS; principal; 2024-03-01)
DX: O69.81X0 Labor and delivery complicated by cord around neck, without compression, not applicable or unspecified (principal); Z3A.40 40 weeks gestation of pregnancy; Z37.0 Single live birth
CPT/HCPCS: 36415; 36600; 59025; 80048; 82803; 85025; 85610; 85730; 86780; 86850; 86900; 86901

== ENCOUNTER 2024-04-12 09:21 | Day surgery (SDC) | payer OTHER ==
[2024-04-12 10:40] LABS: BASO % 0.4 % (0-2.0); EOS % 3.7 % (0-4.5); HEMATOCRIT 39.8 % (32.4-45.2); HEMOGLOBIN 13.6 GM/dL (10.7-15.3); LYMPH % 23.7 % (8-40); MCHC 34.1 g/dl (32.0-36.0); MEAN CELL VOLUME 96.7 fl (80-96); MEAN PLT VOLUME 7.5 fl (7.5-11.1); MONO % 8.5 % (3.8-10.2); NEUT % 63.7 % (42.8-82.8); PLATELET COUNT 239 10^3/uL (134-434); RBC 4.12 M/mm3 (3.60-5.2); RDW 12.9 % (11.6-15.6); WHITE BLOOD COUNT 7.3 K/mm3 (4.0-10.0)
[2024-04-12 10:54] LABS: ALBUMIN 3.5 g/dl (3.4-5.0); BLOOD UREA NITROGEN 15.5 mg/dL (7-18)
[2024-04-12 10:57] LABS: BILIRUBIN,TOTAL 0.7 mg/dL (0.2-1); CREATININE 0.8 mg/dL (0.55-1.3)
[2024-04-12 10:59] LABS: TOT PROT 7.4 g/dl (6.4-8.2)
[2024-04-12] MEDS: diphenhydrAMINE HCL 25 MG CAPSULE (FP) PO ONE (11:20)
[2024-04-12] MEDS: ACETAMINOPHEN 500 MG TABLET (FP) PO ONE (11:20)
[2024-04-12] MEDS: HYDROCORTISONE SOD SUCCINATE IVPB ONE (11:21)
[2024-04-12] MEDS: SODIUM CHLORIDE 250 ML IV ONE (11:21)
[2024-04-12] MEDS: SODIUM CHLORIDE IVPB ONE ×2 (11:21→12:11)
[2024-04-12] MEDS: INFLIXIMAB ABDA IVPB ONE (12:11)
[2024-04-12 15:47] VITALS: RESP 16; TEMP 98.4
[2024-04-12 15:56] VITALS: BP 120/66; PULSE 69
== END 2024-04-12 15:00 | disposition home or self-care (01) ==
LOC: JINFUSION 09:21 → J7W 09:23 → JINFUSION 15:00
PROVIDERS: ATTEND Internal Medicine Gastroenterology
DX: K50.00 Crohn's disease of small intestine without complications (principal)
CPT/HCPCS: 36415; 80053; 85025; 86140; 96367; 96413; 96415; Q5104

== ENCOUNTER 2024-04-27 07:47 | Day surgery (SDC) | payer OTHER ==
[~2024-04-27 07:47] MED LIST changes: +SODIUM CHLORIDE 250 ML IV ONE; -SODIUM CHLORIDE 250 ML IV SCH
[2024-04-27 08:44] LABS: BASO % 0.3 % (0-2.0); EOS % 4.1 % (0-4.5); HEMATOCRIT 38.4 % (32.4-45.2); HEMOGLOBIN 13.2 GM/dL (10.7-15.3); MCH 33.3 pg (25.7-33.7); MCHC 34.4 g/dl (32.0-36.0); MEAN CELL VOLUME 96.6 fl (80-96); MEAN PLT VOLUME 7.1 fl (7.5-11.1); MONO % 7.5 % (3.8-10.2); NEUT % 62.1 % (42.8-82.8); PLATELET COUNT 237 10^3/uL (134-434); RBC 3.97 M/mm3 (3.60-5.2); RDW 13.6 % (11.6-15.6); WHITE BLOOD COUNT 6.3 K/mm3 (4.0-10.0)
[2024-04-27] MEDS: diphenhydrAMINE HCL 25 MG CAPSULE (FP) PO ONE (08:56)
[2024-04-27] MEDS: ACETAMINOPHEN 500 MG TABLET (FP) PO ONE (08:56)
[2024-04-27 09:01] LABS: CHLORIDE 107 mmol/L (98-107); POTASSIUM 4.1 mmol/L (3.5-5.1); SODIUM 140 mmol/L (136-145)
[2024-04-27 09:04] LABS: CALCIUM 8.7 mg/dL (8.5-10.1)
[2024-04-27 09:05] LABS: ALBUMIN 3.4 g/dl (3.4-5.0); ANION GAP 4 mmol/L (4-13); BLOOD UREA NITROGEN 8.9 mg/dL (7-18); CO2 29 mmol/L (21-32); GLUCOSE,RANDOM 82 mg/dL (74-106)
[2024-04-27 09:08] LABS: CREATININE 0.8 mg/dL (0.55-1.3); SGOT/AST 36 U/L (15-37); SGPT/ALT 60 U/L (13-61)
[2024-04-27 09:10] LABS: BILIRUBIN,TOTAL 1.2 mg/dL (0.2-1)
[2024-04-27 09:11] LABS: ALK PHOS 86 U/L (45-117)
[2024-04-27] MEDS: HYDROCORTISONE SOD SUCCINATE IVPB ONE (09:45)
[2024-04-27] MEDS: SODIUM CHLORIDE IVPB ONE ×2 (09:45→10:28)
[2024-04-27] MEDS: SODIUM CHLORIDE 250 ML IV ONE (09:49)
[2024-04-27] MEDS: INFLIXIMAB ABDA IVPB ONE (10:28)
[2024-04-27 11:03] VITALS: RESP 20
[2024-04-27 15:12] VITALS: BP 107/67; PULSE 81; TEMP 98
== END 2024-04-27 13:00 | disposition home or self-care (01) ==
LOC: JINFUSION 07:47 → J7W 07:49 → JINFUSION 13:00
PROVIDERS: ATTEND Internal Medicine Gastroenterology
DX: K50.00 Crohn's disease of small intestine without complications (principal)
CPT/HCPCS: 36415; 80053; 85025; 86140; 96367; 96413; 96415; Q5104

== ENCOUNTER 2024-05-24 07:07 | Day surgery (SDC) | payer OTHER ==
[2024-05-24 07:37] LABS: BASO % 0.6 % (0-2.0); EOS % 3.3 % (0-4.5); HEMATOCRIT 37.8 % (32.4-45.2); LYMPH % 29.2 % (8-40); MCH 33.6 pg (25.7-33.7); MCHC 34.4 g/dl (32.0-36.0); MEAN CELL VOLUME 97.7 fl (80-96); MEAN PLT VOLUME 7.3 fl (7.5-11.1); MONO % 9.4 % (3.8-10.2); NEUT % 57.5 % (42.8-82.8); PLATELET COUNT 262 10^3/uL (134-434); RBC 3.87 M/mm3 (3.60-5.2); RDW 13.3 % (11.6-15.6); WHITE BLOOD COUNT 6.5 K/mm3 (4.0-10.0)
[2024-05-24] MEDS: SODIUM CHLORIDE 250 ML IV ONE (07:42)
[2024-05-24 08:08] LABS: CHLORIDE 109 mmol/L (98-107); SODIUM 141 mmol/L (136-145)
[2024-05-24 08:10] LABS: ALBUMIN 3.5 g/dl (3.4-5.0); ANION GAP 4 mmol/L (4-13); CALCIUM 8.3 mg/dL (8.5-10.1); CO2 28 mmol/L (21-32)
[2024-05-24 08:12] LABS: BLOOD UREA NITROGEN 13.5 mg/dL (7-18); GLUCOSE,RANDOM 84 mg/dL (74-106)
[2024-05-24 08:13] LABS: CREATININE 0.7 mg/dL (0.55-1.3)
[2024-05-24 08:14] LABS: SGOT/AST 30 U/L (15-37); SGPT/ALT 47 U/L (13-61)
[2024-05-24 08:15] LABS: BILIRUBIN,TOTAL 1.3 mg/dL (0.2-1); TOT PROT 7.2 g/dl (6.4-8.2)
[2024-05-24 08:16] VITALS: RESP 18
[2024-05-24 08:16] LABS: ALK PHOS 84 U/L (45-117)
[2024-05-24] MEDS: ACETAMINOPHEN 500 MG TABLET (FP) PO ONE (08:54)
[2024-05-24] MEDS: diphenhydrAMINE HCL 25 MG CAPSULE (FP) PO ONE (08:54)
[2024-05-24] MEDS: HYDROCORTISONE SOD SUCCINATE IVPB ONE (09:09)
[2024-05-24] MEDS: SODIUM CHLORIDE IVPB ONE ×2 (09:09→09:52)
[2024-05-24] MEDS: INFLIXIMAB ABDA IVPB ONE (09:52)
[2024-05-24 14:00] VITALS: BP 95/56; PULSE 74; TEMP 97.9
== END 2024-05-24 12:40 | disposition home or self-care (01) ==
LOC: JONCCHEMO 07:07 → J7W 07:13 → JONCCHEMO 12:40
PROVIDERS: ATTEND Internal Medicine Gastroenterology
DX: K50.00 Crohn's disease of small intestine without complications (principal)
CPT/HCPCS: 36415; 80053; 85025; 86140; 96367; 96413; 96415; 96523; Q5104

== ENCOUNTER 2024-08-08 08:48 | Day surgery (SDC) | payer OTHER ==
[2024-08-08 10:03] LABS: BASO % 0.5 % (0-2.0); EOS % 3.2 % (0-4.5); HEMATOCRIT 42.2 % (32.4-45.2); HEMOGLOBIN 14.2 GM/dL (10.7-15.3); LYMPH % 26.9 % (8-40); MCH 32.1 pg (25.7-33.7); MCHC 33.8 g/dl (32.0-36.0); MEAN CELL VOLUME 95.1 fl (80-96); MEAN PLT VOLUME 8.1 fl (7.5-11.1); NEUT % 59.4 % (42.8-82.8); PLATELET COUNT 238 10^3/uL (134-434); RBC 4.43 M/mm3 (3.60-5.2); RDW 11.8 % (11.6-15.6)
[2024-08-08 10:28] LABS: CHLORIDE 105 mmol/L (98-107); POTASSIUM 3.7 mmol/L (3.5-5.1); SODIUM 139 mmol/L (136-145)
[2024-08-08 10:30] LABS: ALBUMIN 3.3 g/dl (3.4-5.0); ANION GAP 5 mmol/L (4-13); BLOOD UREA NITROGEN 11.5 mg/dL (7-18); CO2 29 mmol/L (21-32); GLUCOSE,RANDOM 74 mg/dL (74-106)
[2024-08-08 10:33] LABS: CREATININE 0.7 mg/dL (0.55-1.3)
[2024-08-08 10:34] LABS: SGOT/AST 25 U/L (15-37); SGPT/ALT 34 U/L (13-61)
[2024-08-08 10:35] LABS: BILIRUBIN,TOTAL 0.8 mg/dL (0.2-1); TOT PROT 7.2 g/dl (6.4-8.2)
[2024-08-08 10:36] LABS: ALK PHOS 90 U/L (45-117)
[2024-08-08] MEDS: SODIUM CHLORIDE 250 ML IV ONE (10:59)
[2024-08-08] MEDS: HYDROCORTISONE SOD SUCCINATE IVPB ONE (11:00)
[2024-08-08] MEDS: SODIUM CHLORIDE IVPB ONE ×2 (11:00→11:43)
[2024-08-08] MEDS: diphenhydrAMINE HCL 25 MG CAPSULE (FP) PO ONE (11:07)
[2024-08-08] MEDS: ACETAMINOPHEN 500 MG TABLET (FP) PO ONE (11:08)
[2024-08-08] MEDS: INFLIXIMAB ABDA IVPB ONE (11:43)
[2024-08-08 15:40] VITALS: RESP 18
[2024-08-08 15:47] VITALS: BP 103/60; PULSE 94; TEMP 98
== END 2024-08-08 14:45 | disposition home or self-care (01) ==
LOC: JINFUSION 08:48 → J7W 08:51 → JINFUSION 14:45
PROVIDERS: ATTEND Internal Medicine Gastroenterology
DX: K50.00 Crohn's disease of small intestine without complications (principal)
CPT/HCPCS: 36415; 80053; 85025; 86140; 96367; 96413; 96415; Q5104

== ENCOUNTER 2024-10-10 07:43 | Day surgery (SDC) | payer OTHER ==
[2024-10-10 09:08] LABS: HEMATOCRIT 39.3 % (32.4-45.2); HEMOGLOBIN 13.5 GM/dL (10.7-15.3); MCH 32.6 pg (25.7-33.7); MCHC 34.4 g/dl (32.0-36.0); MEAN CELL VOLUME 94.8 fl (80-96); PLATELET COUNT 318 10^3/uL (134-434); RBC 4.15 M/mm3 (3.60-5.2); RDW 12.1 % (11.6-15.6); WHITE BLOOD COUNT 7.6 K/mm3 (4.0-10.0)
[2024-10-10 09:29] LABS: CHLORIDE 109 mmol/L (98-107); SODIUM 137 mmol/L (136-145)
[2024-10-10 09:31] LABS: CALCIUM 8.9 mg/dL (8.5-10.1)
[2024-10-10 09:32] LABS: ALBUMIN 3.2 g/dl (3.4-5.0); BLOOD UREA NITROGEN 11.5 mg/dL (7-18); CO2 26 mmol/L (21-32); GLUCOSE,RANDOM 79 mg/dL (74-106)
[2024-10-10 09:34] LABS: ANION GAP 2 mmol/L (4-13); POTASSIUM 6.2 mmol/L (3.5-5.1)
[2024-10-10 09:35] LABS: CREATININE 0.7 mg/dL (0.55-1.3); SGOT/AST 77 U/L (15-37); SGPT/ALT 64 U/L (13-61)
[2024-10-10 09:37] LABS: BILIRUBIN,TOTAL 0.5 mg/dL (0.2-1)
[2024-10-10 09:38] LABS: ALK PHOS 76 U/L (45-117)
[2024-10-10 10:27] LABS: POTASSIUM 3.9 mmol/L (3.5-5.1)
[2024-10-10 10:29] LABS: ALBUMIN 3.1 g/dl (3.4-5.0)
[2024-10-10 10:30] LABS: BLOOD UREA NITROGEN 13.4 mg/dL (7-18)
[2024-10-10 10:33] LABS: CREATININE 0.7 mg/dL (0.55-1.3)
[2024-10-10 10:34] LABS: BILIRUBIN,TOTAL 0.4 mg/dL (0.2-1)
[2024-10-10] MEDS: HYDROCORTISONE SOD SUCCINATE IVPB ONE (10:35)
[2024-10-10] MEDS: SODIUM CHLORIDE IVPB ONE ×2 (10:35→11:27)
[2024-10-10] MEDS: ACETAMINOPHEN 500 MG TABLET (FP) PO ONE (10:36)
[2024-10-10] MEDS: SODIUM CHLORIDE 250 ML IV ONE (10:36)
[2024-10-10] MEDS: diphenhydrAMINE HCL 25 MG CAPSULE (FP) PO ONE (10:36)
[2024-10-10] MEDS: INFLIXIMAB ABDA IVPB ONE (11:27)
[2024-10-10 14:52] VITALS: RESP 18; TEMP 98.3
[2024-10-10 14:58] VITALS: BP 103/62; PULSE 77
== END 2024-10-10 13:45 | disposition home or self-care (01) ==
LOC: JINFUSION 07:43 → J7W 07:46 → JINFUSION 13:45
PROVIDERS: ATTEND Internal Medicine Gastroenterology
PROC: 3E033GC Introduction of Other Therapeutic Substance into Peripheral Vein, Percutaneous Approach (ICD-10-PCS; principal; 2024-10-10)
PROC: 3E0333Z Introduction of Anti-inflammatory into Peripheral Vein, Percutaneous Approach (ICD-10-PCS; 2024-10-10)
DX: K50.00 Crohn's disease of small intestine without complications (principal)
CPT/HCPCS: 36415; 80053; 85027; 86140; 96365; 96366; 96367; 96413; 96415; Q5104

== ENCOUNTER 2024-12-29 07:37 | Day surgery (SDC) | payer OTHER ==
[2024-12-29 08:32] LABS: BASO % 0.4 % (0-2.0); EOS % 2.7 % (0-4.5); HEMOGLOBIN 13.5 GM/dL (10.7-15.3); MCH 33.1 pg (25.7-33.7); MCHC 35.4 g/dl (32.0-36.0); MEAN CELL VOLUME 93.4 fl (80-96); MEAN PLT VOLUME 7.6 fl (7.5-11.1); MONO % 7.7 % (3.8-10.2); NEUT % 62.2 % (42.8-82.8); PLATELET COUNT 254 10^3/uL (134-434); RBC 4.07 M/mm3 (3.60-5.2); RDW 12.2 % (11.6-15.6); WHITE BLOOD COUNT 7.2 K/mm3 (4.0-10.0)
[2024-12-29 08:56] LABS: CHLORIDE 105 mmol/L (98-107); POTASSIUM 3.7 mmol/L (3.5-5.1); SODIUM 137 mmol/L (136-145)
[2024-12-29 08:58] LABS: ALBUMIN 3.2 g/dl (3.4-5.0); ANION GAP 5 mmol/L (4-13); BLOOD UREA NITROGEN 9.7 mg/dL (7-18); CALCIUM 8.5 mg/dL (8.5-10.1); CO2 28 mmol/L (21-32); GLUCOSE,RANDOM 102 mg/dL (74-106)
[2024-12-29 09:01] LABS: SGOT/AST 19 U/L (15-37); SGPT/ALT 21 U/L (13-61)
[2024-12-29 09:02] LABS: CREATININE 0.8 mg/dL (0.55-1.3)
[2024-12-29 09:03] LABS: BILIRUBIN,TOTAL 0.8 mg/dL (0.2-1); TOT PROT 7.1 g/dl (6.4-8.2)
[2024-12-29 09:04] LABS: ALK PHOS 69 U/L (45-117)
[2024-12-29] MEDS: diphenhydrAMINE HCL 25 MG CAPSULE (FP) PO ONE (09:08)
[2024-12-29] MEDS: ACETAMINOPHEN 500 MG TABLET (FP) PO ONE (09:08)
[2024-12-29] MEDS: HYDROCORTISONE SOD SUCCINATE IVPB ONE (09:43)
[2024-12-29] MEDS: SODIUM CHLORIDE IVPB ONE ×2 (09:43→10:23)
[2024-12-29] MEDS: INFLIXIMAB ABDA IVPB ONE (10:23)
[2024-12-29 12:37] VITALS: RESP 16; TEMP 98.4
[2024-12-29 12:44] VITALS: BP 101/63; PULSE 91
== END 2024-12-29 12:30 | disposition home or self-care (01) ==
LOC: J7W 07:37 → JINFUSION 07:37
PROVIDERS: ATTEND Internal Medicine Gastroenterology
PROC: 3E03305 Introduction of Other Antineoplastic into Peripheral Vein, Percutaneous Approach (ICD-10-PCS; principal; 2024-12-29)
PROC: 3E033GC Introduction of Other Therapeutic Substance into Peripheral Vein, Percutaneous Approach (ICD-10-PCS; 2024-12-29)
DX: K50.00 Crohn's disease of small intestine without complications (principal)
CPT/HCPCS: 36415; 80053; 85025; 86140; 96365; 96367; 96368; 96413; 96415; Q5104

== ENCOUNTER 2025-07-31 07:58 | Day surgery (SDC) | payer OTHER ==
[2025-07-31 09:04] LABS: ABSOLUTE IMMATURE GRANULOCYTES 0.02 x10^3/uL (0.0-0.031); BASOPHILS # 0.04 x10^3/uL (0.01-0.08); EOSINOPHIL % 4.4 % (0.7-5.8); EOSINOPHILS # 0.29 x10^3/uL (0.04-0.36); MCHC 33.0 g/dl (32.2-35.5); MEAN CELL VOLUME 96.5 fl (79.4-94.8); MEAN PLT VOLUME 9.6 fl (9.4-12.3); MONOCYTE # 0.55 x10^3/uL (0.24-0.86); MONOCYTE % 8.3 % (4.7-12.5); RDW 12.0 % (12.1-16.8)
[2025-07-31 09:17] LABS: GLUCOSE,RANDOM 85 mg/dL (74-106); TOT PROT 7.1 g/dl (6.4-8.2)
[2025-07-31 09:18] LABS: CO2 25 mmol/L (21-32)
[2025-07-31 09:19] LABS: ALK PHOS 71 U/L (40-150)
[2025-07-31 09:23] LABS: CREATININE 0.73 mg/dL (0.55-1.3); SGOT/AST 24 U/L (5-34); SGPT/ALT 15 U/L (0-55)
[2025-07-31] MEDS: HYDROCORTISONE SOD SUCCINATE IVPB ONE (09:57)
[2025-07-31] MEDS: SODIUM CHLORIDE IVPB ONE ×2 (09:57→10:46)
[2025-07-31] MEDS: ACETAMINOPHEN 500 MG TABLET (FP) PO ONE (09:58)
[2025-07-31] MEDS: diphenhydrAMINE HCL 25 MG CAPSULE (FP) PO ONE (09:59)
[2025-07-31] MEDS: INFLIXIMAB ABDA IVPB ONE (10:46)
[2025-07-31 13:29] VITALS: BP 96/66; PULSE 100; RESP 16
[2025-07-31 13:34] VITALS: TEMP 98.4
== END 2025-07-31 13:30 | disposition home or self-care (01) ==
LOC: JINFUSION 07:58 → J7W 07:58 → JINFUSION 13:30
PROVIDERS: ATTEND Internal Medicine Gastroenterology
DX: K50.00 Crohn's disease of small intestine without complications (principal)
CPT/HCPCS: 36415; 80053; 85025; 86140; 96367; 96413; 96415; Q5104